=== PATIENT | male | born 1995 | race Caucasian/White ===

== ENCOUNTER 2020-10-26 19:37 | Emergency (ER) | payer OTHER ==
[~2020-10-26] VITALS: Ht 172.7 cm; Wt 81.7 kg
== END 2020-10-26 23:32 | disposition home or self-care (01) ==
LOC: ED 19:37
DX: S01.111A Laceration without foreign body of right eyelid and periocular area, initial encounter (principal); Z23 Encounter for immunization; Z87.891 Personal history of nicotine dependence; W50.0XXA Accidental hit or strike by another person, initial encounter
CPT/HCPCS: 12013; 90471; 90715; 99282-25